=== PATIENT | female | born 1940 | race Caucasian/White ===

== ENCOUNTER 2019-10-11 21:03 | Inpatient (IN) | payer MEDICARE ==
[~2019-10-11] VITALS: Ht 162.6 cm; Wt 62.1 kg
[2019-10-11 21:05] VITALS: BP 145/56
[2019-10-11 21:37] LABS: ABSOLUTE BASOPHILS 0.1 thou/uL (0.0-0.2); ABSOLUTE EOSINOPHILS 0.4 thou/uL (0.0-0.7); ABSOLUTE LYMPHOCYTES 2.4 thou/uL (0.8-5.3); ABSOLUTE MONOCYTES 0.6 thou/uL (0.0-1.2); BASOPHILS 1.2 %; EOSINOPHILS 4.2 %; HEMATOCRIT 37.4 % (37.0-47.0); LYMPHOCYTES 28.4 %; MCH 31.9 pg (26.0-34.0); MCHC 34.6 g/dL (28.0-37.0); MCV 92.2 fL (80.0-100.0); MONOCYTES 6.8 %; MPV 8.7 fl. (7.2-11.1); NUCLEATED RBCS 0 /100WBC; PLATELET COUNT* 235 thou/uL (150-400); POLYS 59.4 %; RBC 4.06 mil/uL (4.20-5.00); RDW-CV 15.1 % (10.5-14.5); WBC 8.4 thou/uL (4.0-11.0)
[2019-10-11 21:46] LABS: APTT 25.6 Seconds (25.0-31.3); CALCIUM 8.2 mg/dL (8.5-10.1); INR 1.2; POTASSIUM 3.7 mmol/L (3.5-5.1); PROTIME 12.1 Seconds (9.20-11.50)
[2019-10-11] MEDS ORDERED: ATIVAN0.5 M1 PO (21:47)
[2019-10-11] MEDS ORDERED: ARICEPT10 M1 PO (21:47)
[2019-10-11] MEDS ORDERED: ASA81BEC PO (21:47)
[2019-10-11] MEDS ORDERED: CENTRUM SILVER1 EAC6 PO (21:48)
[2019-10-11] MEDS ORDERED: LASIX 40 MG TAB40 MG PO (21:48)
[2019-10-11] MEDS ORDERED: FISH OIL 1,0001 EAC9 PO (21:48)
[2019-10-11] MEDS ORDERED: KLOR-CON 1010 MEQ PO (21:48)
[2019-10-11] MEDS ORDERED: NEURONTIN100 MG PO (21:48)
[2019-10-11] MEDS ORDERED: LIPITOR 20 MG T20 M1 PO (21:49)
[2019-10-11] MEDS ORDERED: DEPAKOTE250 MG PO (21:49)
[2019-10-11] MEDS ORDERED: METOPROLOL TART25 MG PO (21:49)
[2019-10-11] MEDS ORDERED: NAMENDA 10 MG T10 MG PO (21:49)
[2019-10-11] MEDS ORDERED: FLORANEX TABLE1 EACH PO (21:50)
[2019-10-11] MEDS ORDERED: LEVO-T100 MCG PO (21:50)
[2019-10-11] MEDS ORDERED: CYMBALTA20 MG PO (21:50)
[2019-10-11] MEDS ORDERED: AZO BLADDER CO300 MG PO (21:50)
[2019-10-11 21:51] LABS: ALBUMIN 3.5 g/dL (3.4-5.0); TOTAL BILIRUBIN 0.4 mg/dL (<0.1-1.0); TOTAL PROTEIN 6.9 g/dL (6.4-8.2)
[2019-10-11 22:35] LABS: URINE BILIRUBIN NEGATIVE (Negative); URINE BLOOD NEGATIVE (Negative); URINE CLARITY CLEAR; URINE COLOR YELLOW; URINE GLUCOSE-RANDOM NEGATIVE (Negative); URINE KETONES NEGATIVE (Negative); URINE LEUKOCYTES-REFLEX NEGATIVE (Negative); URINE NITRITE-REFLEX POSITIVE (Negative); URINE PROTEIN NEGATIVE (Negative); URINE UROBILINOGEN 0.2 E.U./dl (0.2-1.0)
[2019-10-11 22:50] LABS: BACTERIA-REFLEX >30 Many /HPF (None Seen); COARSE GRANULAR CASTS 0-3 Few /LPF (None Seen); CRYSTALS None Seen /LPF (None Seen); FINE GRANULAR CASTS 0-3 Few /LPF (None Seen); MUCUS 4-6 Moderate strn/LPF (None Seen); RENAL EPITHELIAL CELLS 0-3 Few /LPF (None Seen); SQUAMOUS 4-10 Moderate /LPF (0-3); TRANSITIONAL EPITHEL CELL 0-3 Few /LPF (None Seen); URINE RBC 3-10 Few /HPF (0-2); WBC CLUMPS Few (None Seen)
[2019-10-11 23:27] VITALS: BP 153/76
[2019-10-11 23:30] VITALS: BP 151/82
[2019-10-12 08:45] VITALS: BP 109/52
--- NOTE | 2019-10-12 11:16 | EKG ---
[place] [address] ELECTROCARDIOGRAM REPORT Name: LOUIE MAKI Room: [address] IN M.R.#: [id number] Admission: 10/11/19 Attend Phys: Khadar Peter, Discharge: Date of : 36 Date of Service: 10/11/192116 Report #: [id number] THIS REPORT FOR: //name// [facility] ED Test Date: 2019-10-11 Test Time: 21:17:28 Pat Name: LOUIE MAKI Department: Room: [facility] Gender: F Greeter Guest Services: RADHA : 1940 Requested By: Brigido Montenegro Order Number: [id number] MD: Tano Kramer Measurements Intervals [place] Rate: 61 P: FL: 118 QRS: -25 QRSD: 97 T: -38 QT: 414 QTc: 417 Interpretive Statements Atrial-paced complexes with first-degree AV block No previous ECG available for comparison Electronically Signed On 10-12-2019 11:16:09 CDT by Tano Kramer [email or web address] <ELECTRONICALLY SIGNED> By: Tano Kramer MD, [facility] 10/12/19 1116 16 16 Tano Kramer MD, [facility] /EPI
[2019-10-12 17:37] VITALS: BP 122/49
--- NOTE | 2019-10-12 18:12 | NUR ---
Pt returned from surgery approx 1630. Pt confused, ao to self. Pt is stable, VSS. IVF running and pt tolerating well. Pt has adductor wedge in place and hip precautions maintained. Pt has no c/o pain at this time. Incision to right hip is CDI and mepilex is in place. Ice pack in place as well. Hourly rounding complete. Will continue to monitor
[2019-10-13] VITALS: BP 116/49
[2019-10-13 04:00] VITALS: BP 118/51
--- NOTE | 2019-10-13 04:54 | NUR ---
PATIENT HAS REMAINED ALERT AND ORIENTED X 1. RESTING QUIETLY AT HOURLY ROUNDS. NO PAIN INDICATORS WITH Q2H TURNS. MEDS PER ORDER. ABLE TO TAKE MEDS WHOLE WITH APPLESAUCE AND DRINKING FROM STRAW WITH ASSIST. MEDS AND IVF'S PER ORDER. DRESSING RIGHT HIP CLEAN AND DRY. ABDUCTION WEDGE IN PLACE. HIP PRECAUTIONS MAINTAINED. VITAL SIGNS STABLE. CONTINUE TO MONITOR.
[2019-10-13 06:04] LABS: HEMATOCRIT 30.7 % (37.0-47.0); MCH 32.2 pg (26.0-34.0); MCHC 34.7 g/dL (28.0-37.0); MCV 92.8 fL (80.0-100.0); MPV 8.6 fl. (7.2-11.1); RBC 3.31 mil/uL (4.20-5.00); RDW-CV 15.2 % (10.5-14.5); WBC 9.6 thou/uL (4.0-11.0)
[2019-10-13 06:10] LABS: HEMOGLOBIN 10.7 gm/dL (12.0-15.0)
[2019-10-13 06:13] LABS: CALCIUM 7.7 mg/dL (8.5-10.1); CREATININE 0.9 mg/dL (0.6-1.3); POTASSIUM 3.8 mmol/L (3.5-5.1)
[2019-10-13 07:30] VITALS: BP 98/40
[2019-10-13 11:39] VITALS: BP 127/48
--- NOTE | 2019-10-13 13:10 | NUR ---
Nutrition: Pt admitted with Rt hip FX. Seen for pressure ulcer risk, on coccyx. Wt: 136#. BG WNL, albumin 3.5. REgular diet ordered. H/o dementia, EDWIN, HLD. No nutrition interventions needed at this time. GOALS: >75% of meals consumed. Consider mild to low nutrition risk. Will follow up per protocol.
[2019-10-13 16:00] VITALS: BP 135/54
--- NOTE | 2019-10-13 16:07 | NUR ---
PT REMAINED ALERT TO SELF. PT WORKED WITH THERAPY AND UP TO CHAIR FOR MEALS. HIP PRECAUTIONS MAINTAINED. MEDS GIVEN ORDERED. MILLAN REMOVED. FALL RISK PRECAUTIONS IN PLACE. HOURLY ROUNDING COMPLETED. WILL CONTINUE TO MONITOR.
[2019-10-13 19:45] VITALS: BP 125/49
[2019-10-14] VITALS: BP 124/51
[2019-10-14 04:00] VITALS: BP 95/50
--- NOTE | 2019-10-14 04:56 | NUR ---
PATIENT REMAINS ALERT AND ORIENTED TO SELF. CAN CONVERSE IN SHORT PHRASES BUT MOSTLY REPEATING WHAT HAS BEEN SAID TO HER. TURNED Q2H. MEDICATED X1 FOR PAIN AND TEMP 100.4. TO GOOD EFFECT. VITAL SIGNS STABLE. POOR APPETITE REPORTED. CONSUMED A PUDDING FOR HS SNACK WITH HER PILLS AND FINISHED ENSURE FROM SUPPER WELL 300 ML WATER. INC URINE. DRESSING RIGHT HIP CLEAN AND DRY. ICE PACK UTILIZED. ABDUCTION WEDGE PLACED FOR SLEEP. HIP PRECAUTIONS MAINTAINED. FALL PRECAUTIONS IN PLACE. CONTINUE TO MONITOR.
[2019-10-14 06:22] LABS: HEMATOCRIT 29.9 % (37.0-47.0); HEMOGLOBIN 10.2 gm/dL (12.0-15.0); MCH 31.7 pg (26.0-34.0); MCV 93.2 fL (80.0-100.0); MPV 9.2 fl. (7.2-11.1); RBC 3.21 mil/uL (4.20-5.00); RDW-CV 14.7 % (10.5-14.5); WBC 12.4 thou/uL (4.0-11.0)
--- NOTE | 2019-10-14 06:44 | OP ---
[address] [address] OPERATIVE REPORT Name: LOUIE MAKI Room: [address] IN [facility]#: [id number] Admission: 10/11/19 Attend Phys: Khadar Peter MD Discharge: Date of : 36 Report #: [id number] THIS REPORT FOR: //name// cc: Nikolas Hinton MD, James MD ~ THIS REPORT FOR: //name// CC: Khadar Hinton DICTATED BY: Maxim Baeza DO DATE OF SERVICE: 10/12/2019 PREOPERATIVE DIAGNOSIS: Right displaced, transcervical femoral neck fracture. POSTOPERATIVE DIAGNOSIS: Right displaced, transcervical femoral neck fracture. PROCEDURE PERFORMED: Right sailaja-hip arthroplasty with the Biomet system with the following components: A size 13 standard offset echo press-fit stem, a size 51 mm outer shell and a size 28 mm modular head component with standard neck. SURGEON: Ayush David DO CASH ACCOUNTANT: Maxim Baeza DO CASH ACCOUNTANT: Hernandez Quezada DO ANESTHESIA: Spinal anesthetic with local injected at the surgical field. ANTIBIOTICS: 2 grams of Ancef given IV 30 minutes prior to incision. ESTIMATED BLOOD LOSS: 200 mL. DRAINS: None. SPECIMENS: None. COMPLICATIONS: None. CONDITION: The patient is stable to PACU. DISPOSITION: PACU to medical surgical floor. INDICATIONS: The patient is a pleasant 79-year-old female who fell out of her wheelchair at her assisted and landed on her right lower extremity. She had [address] [place] [address] OPERATIVE REPORT Name: LOUIE MAKI Room: [address] IN M.R.#: [id number] Admission: 10/11/19 Attend Phys: Khadar Peter MD Discharge: Date of : 38 Report #: [id number] immediate onset of pain and inability to bear weight on the right lower extremity, subsequently taken to [facility] for further evaluation and determined to have a right displaced femoral neck fracture. She was subsequently admitted and recommended undergo a right sailaja-hip arthroplasty. Therefore, the risks, benefits, treatment options, alternatives, and indications were discussed with the patient. Risks include but not limited to damage to surrounding neurovascular structures, continued pain, continued bleeding, need for repeat surgery, wound dehiscence, infection, DVT, PE, as well as inherent complications of anesthesia. The patient assumed the risks and wished to proceed with surgery. The patient and her DPOA assumed the risks and wished to proceed with surgery. DESCRIPTION OF PROCEDURE: The patient was seen in the preoperative holding area where consent was obtained. Right lower extremity was marked and initialed. The patient was then transferred back to the operative suite and placed supine on the operating room table. She was given the benefit of spinal anesthetic, then placed in the left lateral decubitus position. All bony prominences were well padded as well as a well placed axillary roll. The right lower extremity was then sterilely prepped utilizing Hibiclens scrub followed by alcohol rinse and ChloraPrep x 2 and then draped free in normal sterile fashion. A timeout then had indicating appropriate patient, procedure to be performed, operative site, operative surgeon, preoperative antibiotics and all in attendance were in agreeance and all relevant imaging was displayed. Next, the procedure began with a curvilinear incision centered over the anterior aspect of the femur approximately 10 cm. Skin was incised through the skin and subcutaneous tissues with a knife to the level of the IT band. Next, the IT band was then nicked with a second clean knife just inferior to the greater trochanter on the anterior one-third aspect and then the leg was then elevated and finger sweep was used to free also sub-tensor adhesions. Next, the tensor fascia incision was then elongated proximally and distally with curved Ann scissors. This allowed exposure of the gluteus medius tendons attached on the greater trochanter. The leg was then slowly externally rotated and then the gluteus medius and minimus tendons were peeled off the greater trochanter to the level of the capsule with care to only incise approximately the inferior 50% of the tendon, leaving the remaining 50% of the greater trochanter. Next, the superior and inferior aspect of the neck were then identified with the gluteus minimus retracted and the capsule was then identified. Capsule was then incised in a T capsulotomy elevating the superior and inferior flaps as well as removing the capsule of the saddle region as well as the inferior neck to the level of the lesser trochanter. At which point, it was visualized, there was significant fracture intracapsular hematoma as well as a fracture of the transcervical region of the femoral neck with hematoma, fibrinous material. The femoral neck cut was then freshened up representing approximately 1 fingerbreadth above the femoral neck cut with a reciprocating saw with care not to undercut the greater trochanter. Next, the leg was brought up to a lateral position externally rotated and the femoral head was then removed utilizing a bone [place] [address] OPERATIVE REPORT Name: LOUIE MAKI Room: [address]#: [id number] Admission: 10/11/19 Attend Phys: Khadar Peter MD Discharge: Date of : 36 Report #: [id number] pulvinar was then removed as well as any remaining periosteum or capsular bone fragments. Next, femoral head was then trialed and determined to be a size 51 femoral head that allowed adequate stability with good suction. Next, the trial was then removed. The leg was maximally externally rotated and then the box osteotome was used to excise the remnant of the femoral neck and then canal finder was used to localize within the canal. Next, a subsequent reaming was then began starting at 4 and reamed up to a size 13. Next broaching was then began starting at size 7 and then increasing to size 13. Third size 13 allowed good fit and fill with adequate rotation and was determined to be stable. Next, a trial head and neck liner was then performed until it was decided to have a standard neck with a standard head. Next, trial components were then subsequently removed. The femoral canal was then thoroughly irrigated with normal saline and then the final stem was then impacted into appropriate position, depth and anteversion. Next, the tourniquet was then cleansed and dried with normal saline and a clean, dry lap and the final head and neck combination were then impacted on to with a head ____. They were then tested with 2-finger tug test and determined to be stable. Next, the hip was then reduced, taken through range of motion and determined to be stable in all planes with appropriate tension to the knee as well as appropriate leg lengths. Next, the wound was then thoroughly irrigated and the capsule was then closed with #1 Vicryl in dvqqal-yf-axxtf interrupted fashion. Next, the gluteus medius tendon was then reapproximated utilizing #5 FiberWire with a greater trochanter bone tunnels in cljlok-el-qysnk fashion. Then, it was oversewed with #1 Vicryl in a running fashion with locking stitches. Next tibia was then closed utilizing #1 Vicryl in vzciyt-zz-ynzjg interrupted fashion and then the deep fat layer was then closed utilizing 2-0 Vicryl in a ddrrwn-me-lfkwe interrupted fashion followed by skin closure of 2-0 Vicryl in inverted interrupted subcuticular stitches followed by running 3-0 Stratafix subcuticular stitch with skin glue. Sterile dressings of Mepilex and MARY hose were then applied. Abduction pillow was then applied. Anesthesia was then reversed and the patient was transferred back to her hospital bed. Sponge and needle counts were correct x [address] David was present for all critical aspects of the case. <ELECTRONICALLY SIGNED> By: Carlos Caba DO 10/14/19 0644 1556 1654Davipreston David DO /nt
[2019-10-14 07:00] VITALS: BP 118/49
[2019-10-14 12:00] VITALS: BP 107/46
[2019-10-14 16:00] VITALS: BP 117/90
--- NOTE | 2019-10-14 16:41 | NUR ---
PT REMAINED ALERT TO SELF. PT UP TO CHAIR FOR MEALS. PT FEBRILE DURING SHIFT, MEDS GIVEN ORDERED. FALL RISK PRECAUTIONS IN PLACE. HOURLY ROUNDING COMPLETED. WILL CONTINUE TO MONITOR.
--- NOTE | 2019-10-14 16:44 | NUR ---
CM INITIATED ASSESSMENT TO DISCUSS PT. PT WAS ALERT, AND HAS HX OF DEMENTIA AND IS A POOR HISTORIAN PER CHART AND DIL. PT LIVES AT [facility] [place]. [facility] AWAITING AUTH FOR SNF. LOLA SALAZARK W/PAPA TO CONFIRM PT OKAY TO [place], REGARDLESS OF SNF STATUS. NANCY CONFIRMED OK FOR PT TO [facility]TRN. PER PT DIL, PT'S AND SPOUSE'S PHONE IS DISCONNECTED D/T FAILURE TO PAY. CM TO CONT TO FOLLOW.
--- NOTE | 2019-10-14 18:00 | NUR ---
ATTEMPTED TO STRAIGHT CATH TO OBTAIN UA AFTER TRYING OTHER MEASURES. UNABLE TO OBTAIN UA AND PT BECAME AGITATED. WILL ATTEMPT TO GET UA AGAIN.
[2019-10-14 20:00] VITALS: BP 132/51
[2019-10-15 00:35] VITALS: BP 130/48
--- NOTE | 2019-10-15 03:48 | NUR ---
PATIENT SLEPT WELL DURING THIS SHIFT. PT ABLE TO TAKE PILLS CRUSHED IN PUDDING WITH NO PROBLEMS. PT TURNED Q2H PER PROTOCAL. PT DENIES PAIN. ABDUCTOR WEDGE IN PLACE. PT WEARING MARY HOSE AND FOOT PUMPS. PT IS ON ROOM AIR. FREQUENTLY USD ITEMS AND CALL LIGHT WITHIN REACH. SIDERAILS UPX3 AND BED ALARM ON. WILL CONTINUE TO MONITOR.
[2019-10-15 08:00] VITALS: BP 109/45
--- NOTE | 2019-10-15 15:59 | NUR ---
INSUR AUTH IS STILL PENDING...CM SENT UPDATED NOTES PER DARON'S REQUEST.
[2019-10-15 16:00] VITALS: BP 132/42
--- NOTE | 2019-10-15 18:45 | NUR ---
PATIENT RESTING UP IN CHAIR, EATING DINNER. PATIENT IS CONFUSED AND UNCOOPERATIVE AT TIMES. PATIENT DENIES ANY PAIN. PATIENT HAS EXCELLENT APPETITE WITH ASSISTANCE WITH MEALS. PATIENT WORKED WITH THERAPY THIS MORNING. BED/CHAIR ALARMS IN USE. WILL CONTINUE TO MONITOR.
[2019-10-15 19:38] VITALS: BP 126/48
--- NOTE | 2019-10-16 06:50 | NUR ---
PT ORIENTED TO SELF, ON ROOM AIR, VSS, PT TURNED Q2HR, HIP PRECAUTIONS MAINTAINED. HOURLY ROUNDINGS COMPLETE. WILL CONTINUE TO MONITOR.
[2019-10-16 07:50] VITALS: BP 110/50
[2019-10-16 10:10] LABS: ABSOLUTE BASOPHILS 0.1 thou/uL (0.0-0.2); ABSOLUTE EOSINOPHILS 0.7 thou/uL (0.0-0.7); ABSOLUTE LYMPHOCYTES 1.8 thou/uL (0.8-5.3); ABSOLUTE MONOCYTES 0.8 thou/uL (0.0-1.2); HEMATOCRIT 25.4 % (37.0-47.0); HEMOGLOBIN 8.9 gm/dL (12.0-15.0); LYMPHOCYTES 17.2 %; MCH 32.5 pg (26.0-34.0); MCHC 34.9 g/dL (28.0-37.0); MONOCYTES 7.7 %; MPV 9.8 fl. (7.2-11.1); NUCLEATED RBCS 0 /100WBC; PLATELET COUNT* 160 thou/uL (150-400); POLYS 67.1 %; RBC 2.73 mil/uL (4.20-5.00); WBC 10.3 thou/uL (4.0-11.0)
[2019-10-16 10:19] LABS: ALBUMIN 2.1 g/dL (3.4-5.0); CREATININE 0.9 mg/dL (0.6-1.3); POTASSIUM 3.7 mmol/L (3.5-5.1); TOTAL BILIRUBIN 0.6 mg/dL (<0.1-1.0); TOTAL PROTEIN 5.9 g/dL (6.4-8.2)
[2019-10-16] MEDS ORDERED: NORCO 5-325 TA1 EAC2 PO (10:25)
[2019-10-16] MEDS ORDERED: ELIQUIS2.5 MG PO (10:26)
[2019-10-16 11:04] LABS: PLATELET ESTIMATE ADEQUATE
[2019-10-16 11:34] VITALS: BP 110/50
--- NOTE | 2019-10-16 14:05 | NUR ---
PATIENT DISCHARGED TO [facility]. REPORT CALLED TO FRITZ. PATIENT BELONGINGS PACKED AND ASSISTED WITH GETTING DRESSED. PATIENT IV REMOVED. PATIENT DENIES ANY NEEDS. COPY OF CHART AND DISCHARGE SENT WITH TRANSPORTER. PATIENT ASSISTED TO WHEELCHAIR. LEFT BY WHEELCHAIR VAN AT THIS TIME.
--- NOTE | 2019-10-16 14:21 | NUR ---
CM RECIEVED A CALL FROM [facility] ADMISSIONS AND THEY INFORM THAT INSURANCE AUTH HAS BEEN RECEIVED AND ARE ABLE TO ACCEPT THE PT TODAY. [facility] ARRANGED TRANSPOR TFOR THE PT FOR [id number]. CM ATEMPTED TO CONTACT THE PT'S SON TO INFORM OF THIS INFO, BUT THE LISTED NUMBER DOES NOT IDENTIFY HIM ON THE VOICEMAIL. NO MESSAGE LEFT. LOLA INFORMED NURSING OF ALL OF TH EABOVE INFO AND SHE IS IN AGREEMENT. CM WILL REMAIN AVAILABLE TO ASSIST AND FOLLOW NEEDED.
== END 2019-10-16 14:05 | DRG 470 ==
LOC: M.ERS 21:03 → M.ORTHSURG 21:49 → M.TBA-ER 21:49 → M.ORTHSURG 23:46
PROVIDERS: Family Medicine; Internal Medicine; Orthopaedic Surgery; ADMIT Internal Medicine; ATTEND Internal Medicine
PROC: 0SRR0JA Replacement of Right Hip Joint, Femoral Surface with Synthetic Substitute, Uncemented, Open Approach (ICD-10-PCS; principal; 2019-10-12)
DX: M80.051A Age-related osteoporosis with current pathological fracture, right femur, initial encounter for fracture (principal); N39.0 Urinary tract infection, site not specified; I50.32 Chronic diastolic (congestive) heart failure; F03.90 Unspecified dementia, unspecified severity, without behavioral disturbance, psychotic disturbance, mood disturbance, and anxiety; I48.91 Unspecified atrial fibrillation; G47.33 Obstructive sleep apnea (adult) (pediatric); E03.9 Hypothyroidism, unspecified; E78.5 Hyperlipidemia, unspecified; F41.9 Anxiety disorder, unspecified; F32.9 Major depressive disorder, single episode, unspecified; F39 Unspecified mood [affective] disorder; Z90.13 Acquired absence of bilateral breasts and nipples; Z95.0 Presence of cardiac pacemaker; Z85.3 Personal history of malignant neoplasm of breast; Z88.0 Allergy status to penicillin; Z91.040 Latex allergy status; Z03.818 Encounter for observation for suspected exposure to other biological agents ruled out

== ENCOUNTER 2020-04-01 12:51 | Inpatient (IN) | payer MEDICARE ==
[~2020-04-01] VITALS: Ht 162.6 cm; Wt 62.7 kg
[~2020-04-01 12:51] MED LIST: ARICEPT10 M1 PO; ASA81BEC PO; ATIVAN0.5 M1 PO; AZO BLADDER CO300 MG PO; CENTRUM SILVER1 EAC6 PO; CYMBALTA20 MG PO; DEPAKOTE250 MG PO; ELIQUIS2.5 MG PO; FISH OIL 1,0001 EAC9 PO; FLORANEX TABLE1 EACH PO; KLOR-CON 1010 MEQ PO; LASIX 40 MG TAB40 MG PO; LEVO-T100 MCG PO; LIPITOR 20 MG T20 M1 PO; METOPROLOL TART25 MG PO; NAMENDA 10 MG T10 MG PO; NEURONTIN100 MG PO; NORCO 5-325 TA1 EAC2 PO
[2020-04-01 12:54] VITALS: BP 119/68
[2020-04-01] MEDS ORDERED: ARICEPT10 M1 PO (12:57)
[2020-04-01] MEDS ORDERED: TYLENOL325 M1 PO (12:57)
[2020-04-01] MEDS ORDERED: ATIVAN0.5 M1 PO (12:58)
[2020-04-01] MEDS ORDERED: AZO CRANBERRY250 MG PO (12:58)
[2020-04-01] MEDS ORDERED: DRIZALMA SPRINK20 MG PO (12:59)
[2020-04-01] MEDS ORDERED: LOPERAMIDE 2 MG2 M1 PO (13:00)
[2020-04-01] MEDS ORDERED: MIRALAX119 GM PO (13:01)
[2020-04-01] MEDS ORDERED: VITAMIN D325 MC3 PO (13:01)
[2020-04-01 13:27] LABS: ABSOLUTE BASOPHILS 0.1 thou/uL (0.0-0.2); ABSOLUTE LYMPHOCYTES 1.9 thou/uL (0.8-5.3); ABSOLUTE MONOCYTES 0.8 thou/uL (0.0-1.2); ABSOLUTE NEUTROPHILS 5.6 thou/uL (1.6-8.1); BASOPHILS 0.7 %; HEMATOCRIT 38.8 % (37.0-47.0); HEMOGLOBIN 12.4 gm/dL (12.0-15.0); LYMPHOCYTES 22.6 %; MCHC 31.9 g/dL (28.0-37.0); MONOCYTES 9.1 %; MPV 8.6 fl. (7.2-11.1); NUCLEATED RBCS 0 /100WBC; PLATELET COUNT* 260 thou/uL (150-400); POLYS 67.6 %; RBC 4.13 mil/uL (4.20-5.00); RDW-CV 16.4 % (10.5-14.5); WBC 8.2 thou/uL (4.0-11.0)
[2020-04-01 13:31] LABS: CALCIUM 8.4 mg/dL (8.5-10.1); CREATININE 1.7 mg/dL (0.6-1.3); POTASSIUM 3.8 mmol/L (3.5-5.1)
[2020-04-01 13:41] LABS: APTT 24.1 Seconds (25.0-31.3); INR 1.2; PROTIME 12.7 Seconds (9.20-11.50)
[2020-04-01 13:42] LABS: ALBUMIN 2.8 g/dL (3.4-5.0); TOTAL BILIRUBIN 0.4 mg/dL (<0.1-1.0); TOTAL PROTEIN 7.6 g/dL (6.4-8.2)
[2020-04-01 13:44] LABS: BE 2.6 mmol/L (-2 to +3); PCO2 42.7 mmHg (35.0-45.0); PO2 82.7 mmHg (75.0-100.0); pH 7.424 (7.340-7.450)
--- NOTE | 2020-04-01 14:35 | EKG ---
[place] [address] ELECTROCARDIOGRAM REPORT Name: LOUIE MAKI Room: [place] [address] ADM IN [facility].#: [id number] Admission: 04/01/20 Attend Phys: Vania Melendez MD Discharge: Date of : 36 Date of Service: 04/01/20 1301 Report #: [id number] THIS REPORT FOR: //name// [facility] ED Test Date: 2020-04-01 Test Time: 13:01:15 Pat Name: LOUIE MAKI Department: Room: [facility] Gender: F Automatic Lehr Operator: : 1940 Requested By: Brigido Montenegro Order Number: [id number] MD: Tano Kramer Measurements Intervals [place] Rate: 63 P: 64 DC: 148 QRS: 54 QRSD: 88 T: 7 QT: 409 QTc: 419 Interpretive Statements Sinus rhythm Baseline wander in lead(s) V1 Nondiagnostic inferior Q waves Compared to ECG 10/11/2019 21:17:2 Minor interventricular conduction delay persists Atrial-paced complex(es) or rhythm no longer present Electronically Signed On 04-01-2020 14:35:24 ISOBUTYLENE OPERATOR CHIEF by Tano Kramer [email or web address] <ELECTRONICALLY SIGNED> By: Tano Kramer MD, [facility] 04/01/20 1435 1301 1301 Tano Kramer MD, [facility] /EPI
[2020-04-01 18:23] VITALS: BP 117/53
--- NOTE | 2020-04-01 19:20 | NUR ---
PT RESTING QUIETLY IN BED WITH O2 15L HI JERZY NC, SAT 95%. PT NON VERBAL, WILL SQUEEZE MY HAND AND GRIMACES SHOWING TEETH. LAC IVF PLACED ON PUMP FOR INFUSION. BSR UP, CALL LITE IN EASY REACH, BED ALRM ON FOR SAFETY. DOES NOT APPEAR TO BE IN PAIN OR DISTRESS. TELE MONITOR TO BE PLACED ON PT. REMAINS ON COVID ISOLATION. WILL CONTINUE TO MONITOR AND PROVIDE CARES ORDERED.
[2020-04-01 19:45] VITALS: BP 153/61
--- NOTE | 2020-04-01 21:30 | NUR ---
SPOKE WITH SON JUWAN AND GAVE HIM AN UPDATE ON PT CONDITION AND PLAN OF CARE. HE HAD NO QUESTIONS AT THIS TIME AND WILL CALL BACK TOMORROW.
[2020-04-02 00:40] VITALS: BP 119/61
[2020-04-02 00:49] LABS: CALCIUM 8.6 mg/dL (8.5-10.1); CREATININE 1.4 mg/dL (0.6-1.3); POTASSIUM 3.2 mmol/L (3.5-5.1)
[2020-04-02 04:20] VITALS: BP 134/72
--- NOTE | 2020-04-02 05:29 | NUR ---
PT SLEPT FAIRLY WELL OVERNIGHT, AWAKENS EASILY WITH CARES. MAKING FACIAL GRIMACES WITH CONVERSATION, OCC REPEATING WORDS BACK THAT STAFF SAYS. HS ACCUCHECK 197, INSULIN GIVEN ORDERED. LAC IVF INFUSING PER PUMP, LABS DRAWN ORDERED. NPO, BEDREST, TURNED AND REPOSITIONED Q2 HOURS AND PRN FOR SKIN CARE AND COMFORT. INCONT URINE SEVERAL TIMES OVERNIGHT, MICHAEL CARE GIVEN AND BARRIER CREAM APPLIED. ORAL SWABS FOR MOUTH, LIP MOISTURIZER APPLIED. TELE SR, PACED. SOME CONGESTED COUGH HEARD THIS MORNING. O2 15L HFNC SAT 95%. R LIMB ALERT HX MASTECTOMY. AM LABS. NEPHROLOGY CONSULT BY DR LAMAR. BED ALRM ON FOR SAFETY. NO APPARENT PAIN-RESTING QUIETLY WITH EYES CLOSED.
[2020-04-02 05:35] LABS: HEMATOCRIT 38.7 % (37.0-47.0); HEMOGLOBIN 12.7 gm/dL (12.0-15.0); MCH 30.7 pg (26.0-34.0); MCHC 32.8 g/dL (28.0-37.0); MCV 93.8 fL (80.0-100.0); RBC 4.13 mil/uL (4.20-5.00); RDW-CV 16.3 % (10.5-14.5); WBC 9.9 thou/uL (4.0-11.0)
[2020-04-02 05:48] LABS: CALCIUM 8.7 mg/dL (8.5-10.1); CREATININE 1.3 mg/dL (0.6-1.3); POTASSIUM 3.3 mmol/L (3.5-5.1)
[2020-04-02 09:00] VITALS: BP 164/99
[2020-04-02 13:59] VITALS: BP 149/64
--- NOTE | 2020-04-02 14:55 | NUR ---
CM CONTACTED PT'S SON JUWAN TO DISCUSS CM ASSESSMENT. JUWAN INFORMS THAT THE PT RESIDES AT [facility] ON THE MEMORY [facility]ARE UNIT. JUWAN INFORMS THAT THE PT HAS 'DEMENTIA AND CANT REMEMBER A LOT'. PT USES A WHEELCHAIR FOR MOBILITY AND NEEDS ASSISTANCE WITH FEEDING AT TIMES. PT CURRENTLY ON 15L HIGH FLOW 02. CM WILL NEED TO CONFIRM IF ANY OXYGEN WAS USED BY PT PRIOR TO ADMIT. CM ATTEMPTED TO CONTACT ISM'S TO DISUCUSS ABILITY TO ACCEPT TO PT AT D/C. NO ANSWER CM WILL F/U WITH ISM'S TO DISCUSS THIS. CM WILL REMAIN AVAILABLE TO ASSIST AND FOLLOW NEEDED. [facility] PHONE: [phone]
--- NOTE | 2020-04-02 16:47 | NUR ---
PT REMAINED ALERT. PT VERBAL AT TIMES BUT DIFFICULT TO UNDERSTAND. Q2 TURNS COMPLETED. ACCU CHECKS COMPLETED. FAMILY UPDATED. FALL RISK PRECAUTIONS IN PLACE. HOURLY ROUNDING COMPLETED. ISOLATION MAINTAINED.
[2020-04-02 18:01] LABS: CALCIUM 8.4 mg/dL (8.5-10.1); CREATININE 1.3 mg/dL (0.6-1.3); POTASSIUM 3.5 mmol/L (3.5-5.1)
[2020-04-02 18:39] LABS: URINE BILIRUBIN NEGATIVE (Negative); URINE BLOOD TRACE (Negative); URINE COLOR YELLOW; URINE GLUCOSE-RANDOM NEGATIVE (Negative); URINE KETONES NEGATIVE (Negative); URINE LEUKOCYTES 3+ (Negative); URINE NITRITE POSITIVE (Negative); URINE PROTEIN 1+ (Negative); URINE SPECIFIC GRAVITY 1.015 (1.005-1.030); URINE UROBILINOGEN 0.2 E.U./dl (0.2-1.0)
[2020-04-02 18:41] LABS: URINE CLARITY SL HAZY
[2020-04-02 18:49] LABS: BACTERIA 1-9 Few /HPF (None Seen); CRYSTALS None Seen /LPF (None Seen); HYALINE CASTS 4-10 Moderate /LPF (None Seen); MUCUS None Seen strn/LPF (None Seen); SQUAMOUS 4-10 Moderate /LPF (0-3); URINE RBC 0-2 Rare /HPF (0-2); URINE WBC >25 Many /HPF (0-5)
[2020-04-02 19:47] VITALS: BP 148/57
[2020-04-03] VITALS: BP 140/68
[2020-04-03 04:00] VITALS: BP 137/45
--- NOTE | 2020-04-03 04:52 | NUR ---
PT ORIENTED TO SELF. ON 15L BY [place]. MEDS GIVEN ORDERED. PT INCONTINENT OF BLADDER. TURNS, HOURLY ROUNDINGS DONE. PT SAID SHE IS HUNGRY, SNACKS GIVEN. WILL CONTINUE TO MONITOR.
[2020-04-03 08:15] VITALS: BP 125/55
[2020-04-03 08:51] LABS: HEMOGLOBIN 12.3 gm/dL (12.0-15.0); MCH 30.5 pg (26.0-34.0); MCHC 32.3 g/dL (28.0-37.0); MCV 94.4 fL (80.0-100.0); MPV 9.1 fl. (7.2-11.1); RBC 4.03 mil/uL (4.20-5.00); RDW-CV 16.5 % (10.5-14.5); WBC 17.1 thou/uL (4.0-11.0)
[2020-04-03 09:01] LABS: CALCIUM 8.5 mg/dL (8.5-10.1); CREATININE 1.4 mg/dL (0.6-1.3); POTASSIUM 3.6 mmol/L (3.5-5.1)
--- NOTE | 2020-04-03 09:52 | CON ---
[address] [address] CONSULTATION Name: LOUIE MAKI Room: [address] IN M.R.#: [id number] Admission: 04/01/20 Attend Phys: Vania Melendez MD Discharge: Date of : 36 Report #: [id number] THIS REPORT FOR: cc: Nikolas Hinton MD, James MD Alessandra Lane MD NEPHROLOGY CONSULT CONSULTING PHYSICIAN: Dr. Melendez. REASON FOR CONSULTATION: Hypernatremia. HISTORY OF PRESENT ILLNESS: This is an 79-year-old female with a history of dementia, brought in from nursing facility for shortness of air. She tested positive for COVID-19 and is under treatment for that by primary service. Her sodium was as high as 164 and creatinine was 1.7 on admission. She was started on hydration. Her chemistries are improving. She is not able to provide any meaningful history at the present time. REVIEW OF SYSTEMS: Constitutional, psych, heme, eyes, ENT, respiratory, cardiac, GI, , endocrine, all negative except as documented above and as best as can be ascertained from chart review. FAMILY HISTORY: Not pertinent to current clinical case. SOCIAL HISTORY: Resides at [facility]. CURRENT MEDICATIONS: Reviewed. PHYSICAL EXAMINATION: VITAL SIGNS: Blood pressure is 134/72, pulse 77, respirations 20, temperature 36.7. GENERAL: No acute distress. EYES: Open. EARS: Externally normal. CARDIOVASCULAR: Regular rate. LUNGS: Diminished. ABDOMEN: Soft. MUSCULOSKELETAL: Nontender. PSYCHIATRIC: Does not answer questions or follow commands. LABORATORY STUDIES: White cell count 9.9, hemoglobin 12.7, platelets 242. Sodium 159, potassium 3.3, chloride 118, bicarbonate 30, BUN 34, creatinine 1.3, glucose 193, calcium 8.7. [place] [address] CONSULTATION Name: LOUIE MAKI Room: [address] IN [facility]#: [id number] Admission: 04/01/20 Attend Phys: Vania Melendez MD Discharge: Date of : 36 Report #: [id number] ASSESSMENT: 1. Acute kidney injury with admission creatinine of 1.7 in the setting of volume depletion. Creatinine is improving. 2. COVID-19 pneumonia. 3. Hypernatremia. 4. Plan renal function is improving. Admission creatinine was 1.7, is now down to 1.3. On 10/15, her creatinine was 0.9. 5. Hypernatremia with a sodium of 164on admission. On 10/15, it was 138 secondary to dehydration. PLAN: 1. Continue D5W at 100 mL an hour. 2. Hypokalemia. Potassium was replaced. 3. Check labs again in the a.m. We will also check a UA. No indication for ultrasound at this time. His creatinine is improving. We will follow along with you. Thank you for requesting my opinion in the care and management of this patient. <ELECTRONICALLY SIGNED> By: Alessandra Lane MD 04/03/[address] MD /nt
--- NOTE | 2020-04-03 12:32 | NUR ---
THIS NURSE AGREES WITH ASSESSMENT THIS SHIFT.
[2020-04-03 14:58] VITALS: BP 136/69
--- NOTE | 2020-04-03 14:59 | NUR ---
PHONE CALL TO PATIENT'S SON JUWAN. INDORMED ON PT STATUS. PT REMAINS ON HIGH FLOW OXYGEN. MAKING WYE CONTACT WITH STAFF. TURN Q 2 HOURS. PT SMILES AT TIMES. UNKNOWN DISCHARGE DATE. INFORMED TO CALL TOMORROW AFTER ROUNDS TO SPEAK WITH SUPERVISOR ROAD ADMINISTRATOR. INFORMED TO TAKE ILLNESS DAY BY DAY. PT IS DOING WELL NOW. CALL LIGHT IN REACH. WILL CONTINUE TO MONITOR. THANKED FOR THE CALL.
[2020-04-03 16:30] VITALS: BP 116/60
--- NOTE | 2020-04-03 18:05 | NUR ---
PT ALERT IN BED. VSS, FALL RISK PRECAUTIONS IN PLACE. Q2 TURNS DOCUMENTED. PT REMAINS ON 15 L HIGH FLOW O2. PT NEEDS ASSISTANCE WITH EATING. SPOKE WITH FAMILY. WILL CONTINUE TO MONITOR.
[2020-04-03 20:30] VITALS: BP 107/43
[2020-04-04 01:20] VITALS: BP 123/48
[2020-04-04 03:31] VITALS: BP 115/49
[2020-04-04 04:31] LABS: HEMATOCRIT 32.2 % (37.0-47.0); HEMOGLOBIN 10.7 gm/dL (12.0-15.0); MCH 30.6 pg (26.0-34.0); MCHC 33.2 g/dL (28.0-37.0); MCV 92.3 fL (80.0-100.0); RBC 3.49 mil/uL (4.20-5.00); RDW-CV 16.2 % (10.5-14.5); WBC 8.1 thou/uL (4.0-11.0)
[2020-04-04 04:45] LABS: CALCIUM 7.5 mg/dL (8.5-10.1); CREATININE 1.3 mg/dL (0.6-1.3); POTASSIUM 3.7 mmol/L (3.5-5.1)
--- NOTE | 2020-04-04 07:19 | NUR ---
Patient is confused. Vitals are stable. She's on a high flow nasal canula at 15L. She's turned every 2 hours,redness on buttocks. She was incontinent of urine, purewick was placed. This am critical Na+ called to nephro and orders recieved and also hosptalist notified. She's febrile and tylenol was given. She has slept well.
--- NOTE | 2020-04-04 09:38 | NUR ---
PT ON 15L NRB AND HIFLO OXYGEN. OBTAIN STAT CXRY, PLACE MILLAN, CONSULT WITH DR. CARLTON AT [facility].
[2020-04-04 12:31] LABS: CALCIUM 8.2 mg/dL (8.5-10.1); CREATININE 1.2 mg/dL (0.6-1.3)
[2020-04-04 12:33] LABS: POTASSIUM 2.7 mmol/L (3.5-5.1)
[2020-04-04 12:52] VITALS: BP 121/48
--- NOTE | 2020-04-04 16:00 | NUR ---
PT.REMAINS ON O2 15L/NRB MASK. ID CONSULTED FOR POSITIVE BLD CX. RULED A CONTAMINATE. FEBRILE. IS ON IVAB. WILL CONTINUE TO FOLLOW.
[2020-04-04 17:30] VITALS: BP 95/42
[2020-04-04 20:00] VITALS: BP 110/57
[2020-04-05 00:06] VITALS: BP 143/61
[2020-04-05 04:00] VITALS: BP 138/56
--- NOTE | 2020-04-05 04:39 | NUR ---
PT A&O X 1, CONFUSED. 15L OF OXYGEN. LOW GRADE TEMP, CONGESTED COUGH. POTASSIUM REPLACED PER PROTOCOL. MILLAN IN PLACE. TURNS, HOURLY ROUNDINGS DONE. WILL CONTINUE TO MONITOR.
[2020-04-05 05:14] LABS: CALCIUM 7.9 mg/dL (8.5-10.1); CREATININE 1.1 mg/dL (0.6-1.3)
[2020-04-05 15:00] VITALS: BP 113/60
[2020-04-05 16:34] VITALS: BP 126/60
--- NOTE | 2020-04-05 16:36 | NUR ---
UPDATED NIKKIE/SAMUEL REGARDING PT. SHE REMAINS ON 15L 02 ON [facility]. O2 REQIURMENTS WILL NEED TO BE UNDER 5L BEFORE THEY CAN ACCEPT HER BACK. PER NIKKIE, PT.DID NOT WEAR O2 AT IS. SHE ALSO LOVES DIET COKE. CM WILL FOLLOW
[2020-04-05 21:00] VITALS: BP 129/72
[2020-04-06] VITALS: BP 129/60
[2020-04-06 04:00] VITALS: BP 118/101
[2020-04-06 09:00] VITALS: BP 117/83
[2020-04-06 09:10] LABS: CALCIUM 9.3 mg/dL (8.5-10.1); CREATININE 1.1 mg/dL (0.6-1.3); POTASSIUM 3.8 mmol/L (3.5-5.1)
[2020-04-06 16:00] VITALS: BP 139/62
--- NOTE | 2020-04-06 16:00 | NUR ---
FEBRILE YESTERDAY AND TODAY. NOT EATING/DRINKING. WILL START NG TUBE FEEDINGS. ON 02 PER VENTIMASK. IV ANTIBIOTICS. DISCUSSED WITH FAMILY.
[2020-04-06 21:12] VITALS: BP 105/52
[2020-04-07] VITALS: BP 118/57
[2020-04-07 04:00] VITALS: BP 118/55
--- NOTE | 2020-04-07 07:59 | NUR ---
PATIENT SLEPT PART OF THE NIGHT. NG TUBE REMAINS IN PLACE. TUBE FEEDING WAS GIVEN Q6 WITH WATER FLUSHES. PATIENT WAS PLACED BACK ON NRB AT 15L DUE TO SATS IN THE 80S ON THE VENTIMASK. WILL CONTINUE TO MONITOR.
[2020-04-07 08:00] VITALS: BP 139/55
[2020-04-07 09:01] LABS: CREATININE 1.1 mg/dL (0.6-1.3); POTASSIUM 3.7 mmol/L (3.5-5.1)
[2020-04-07 12:00] VITALS: BP 110/50
--- NOTE | 2020-04-07 17:00 | NUR ---
PT.VERY [place] AND NON VERBAL AT THIS TIME. SHE IS ON HIGH O2 REQUIREMENTS AND NPO PER ST RECOMMENDATIONS. IF FAMILY AGREEABLE TO HOSPICE SHE COULD RETURN TO HER LTC BED ON THEIR [facility]ARE UNIT WITH HIGHER O2 REQUIREMENTS.
[2020-04-07 17:15] VITALS: BP 145/77
--- NOTE | 2020-04-07 19:22 | NUR ---
RECEIVED REPORT AROUND 07. ASSUMED CARE. IV'S INTACT. HEART MONITOR ATTACHED AT [facility]. VS AND ASESSMENT CHARTED. HOURLY ROUNDING PERFORMED. MEDS GIVEN PER MAY. DR CROWE PULLED NG TUBE OUT AND PUT PT ON 5L NC. PT LYING IN BED. PHYSICAL THERAPY WORKED WITH PT THIS SHIFT. MAX ASSIST TO CHAIR. MILLAN INTACT. SPEECH SAW PT. MADE PT NPO STATUS DUE TO UNABLE TO FOLLOW COMMANDS. DR NOTIFIED. INSULIN AND DEXAMETHASONE D/C'D PER DR CROWE. CALL LIGHT WTIN REACH. WILL CONTINUE TO MONITOR.
[2020-04-07 21:00] VITALS: BP 117/69
[2020-04-08 00:27] VITALS: BP 149/67
[2020-04-08 04:51] VITALS: BP 130/58; BP 159/69
--- NOTE | 2020-04-08 05:02 | NUR ---
PT LYING IN BED AT TIME OF ASSESSMENT, SHE IS AO X1 WITH LITTLE CONVERSATION. PT IS A-PACED ON TELE. PT IS NPO PER SPEECH EVAL YESTERDAY. PT HAS MILLAN CATH WITH HISTROY OF INCONTINENCE. PT HAS MIDLINE TO LUE
[2020-04-08 08:00] VITALS: BP 117/66
[2020-04-08 10:15] LABS: CREATININE 0.8 mg/dL (0.6-1.3)
[2020-04-08 12:19] VITALS: BP 163/80
--- NOTE | 2020-04-08 16:00 | NUR ---
PT.REMAINS ON HI O2 REQUIREMENTS. REMAINS NPO PER SPEECH. DISCUSSED WITH . HE SAID NO DISCHARGE TODAY. [facility]-[phone]
[2020-04-08 16:54] VITALS: BP 123/74
--- NOTE | 2020-04-08 19:18 | NUR ---
RECEIVED REPORT AROUND 0715. ASSUMED CARE. VS AND ASSESSMENT CHARTED. IV INTACT LEFT UPPER ARM. MILLAN INTACT. HEART MONITOR ATTACHED AT APACED. PT LYING IN BED. PHYSICAL THERAPY WORKED WITH PT THIS SHIFT. GOT UP TO CHAIR FOR A WHILE. PT NONVERBAL. UNABLE TO VOICE WHETHER IN PAIN OR NOT. NO APPARENT PAIN. NPO STATUS INTACT. WATER AND ICE CHIPS ACCEPTABLE PER SPEECH. SON UPDATED ON PT THIS SHIFT. MEDS GIVEN PER MAY. HOURLY ROUNDING PERFORMED. Q2 TURNS. CALL LIGHT WITHIN REACH.
[2020-04-09 00:54] VITALS: BP 147/59
[2020-04-09 04:00] VITALS: BP 104/55
--- NOTE | 2020-04-09 06:35 | NUR ---
ASSUMED PT'S CARE @ ABOUT 1999. PT WAS AWAKE. NONEVERBAL. ATTEMPTS TO SPEAK BUT UNABLE TO VOICE ANY WORDS. PT NPO. NO PO MEDS GIVEN. Q2 TURN, FALL PRECAUTION IN PLACE. PT SLEPT WELL THIS SHIFT. CALL LIGHT WITHIN REACH. WILL CONTINUE TO MONITOR.
[2020-04-09 09:30] VITALS: BP 118/56
--- NOTE | 2020-04-09 09:45 | NUR ---
NOTICED PT SLOUCHED OVER IN BED. NOTED SHALLOW BREATHING. O2 SAT 87-89% ON 10L HFNC. INCREASED O2 TO 12L THEN 15L WITH O2 SAT AT 90%. RT CALLED. PT PLACED ON BIPAP WITH A RATE OF 16.
--- NOTE | 2020-04-09 11:55 | NUR ---
SPOKE WITH PATIENT'S SON JWUAN. UPDATE GIVEN. INFORMED PT WAS BACK ON THE BIPAP FOR COMFORT, EASE OF BREATHING, AND O2 LEVELS LOW PER HFNC. PT STILL NOT EATING. INFORMED NO PLAN TO D/C AT THIS TIME. PER SON PT IS A DNR AND TIBURCIO ROSENTHAL HAS THE INFORMATION FOR RESUSCITATION STATUS. DOES NOT WANT TO TALK WITH TELEVISION EQUIPMENT OPERATOR AT THIS TIME. PER REPORT PT LIKES [employer] [facility]/[facility] WHEN SHE CAN EAT. APPRECIATES UPDATE. WILL PASS ALONG TO INTERIOR DESIGN COORDINATOR TO UPDATE SON BEFORE 2200.
[2020-04-09 12:28] LABS: CREATININE 0.8 mg/dL (0.6-1.3)
[2020-04-09 16:00] VITALS: BP 176/92
--- NOTE | 2020-04-09 18:45 | NUR ---
PT SLEEPING IN BED COMFORTABLY AT THIS TIME. PT REMAINS ON BIPAP. RATE IS 21. LEFT MIDLINE RUNNING ABX. RESPS EVEN AND UNLABORED. NO DISTRESS NOTED. PT SLEEPING WELL. WILL CONTINUE TO MONITOR. CALL LIGHT WITHIN REACH.
[2020-04-10 00:55] VITALS: BP 162/88
[2020-04-10 04:48] VITALS: BP 163/63
--- NOTE | 2020-04-10 06:44 | NUR ---
NO ACUTE CHANGES THROUGHOUT SHIFT. PT RESTED MOST OF THE NIGHT AND WAS ON BIPAP FOR ENTIRE SHIFT.
--- NOTE | 2020-04-10 18:18 | NUR ---
PT SLEEPING IN BED AT THIS TIME. ABX RUNNING THROUGH MIDLINE ON LEFT UPPER ARM. PT AWAKENS TO VOICE. PT REMAINS NPO DUE TO BIPAP. CALL LIGHT WITHIN REACH. WILL CONTINUE TO MONITOR.
[2020-04-11 01:13] VITALS: BP 158/79
[2020-04-11 05:46] VITALS: BP 131/45
[2020-04-11 07:40] VITALS: BP 133/37
--- NOTE | 2020-04-11 12:08 | NUR ---
RECEIVED CALL FROM PATIENT'S SON JUWAN. UPDATE GIVEN. STATES HE WAS RETURNING MD CALL. WILL PASS ON THE MESSAGE. DR. CROWE PAGED VIA PAGE ME TO CALL HIM BACK.
--- NOTE | 2020-04-11 14:09 | NUR ---
PT.HAS DISCHARGE ORDERS TO RETURN TO [facility] WITH HOSPICE. DISCUSSED WITH SON,JUWAN. CM HAD TO LEAVE FOR JUWAN. ASKED HIM TO CALL ME BACK TO DISCUSS HOSPICE AND WHICH AGENCY HE MIGHT WANT TO USE.
--- NOTE | 2020-04-11 17:00 | NUR ---
SON,JUWAN, CALLED BACK ABOUT 1500. DISCUSSED HOSPICE AND AGENCIES. HE CHOSE [facility] [place]. EXPLAINED SOMEONE FROM [facility] WOULD BE CONTACTING HIM TO SIGN ON WITH HOSPICE PROBABLY THROUGH EMAIL/FAX. TOLD HIM HOSPICE WOULD ORDER ALL EQUIPMENT NEEDED AND ONCE IN PLACE HIS MOM WOULD BE TAKEN BY AMBULANCE OVER TO [facility]. PROBABLY EARLY EVENING. HE WAS AGREEABLE. FAXED REFERRAL TO [facility] [place] AND ORDERS TO [facility] . SPOKE WITH [facility]/ADMISSIONS. CHART COPIED TO GO WITH PT. TRINO CLARK TO CALL REPORT. [facility] ASKED THAT AMBULANCE TRANSPORT BE SET UP FOR 1800 TO MAKE SURE EQUIPMENT ARRIVED. PHYSICAL MEDICINE PHYSICIAN WOULD MEET PT.OVER AT [facility] TO GET HER ADMITTED.
--- NOTE | 2020-04-11 17:39 | NUR ---
PT REMAINS UNRESPONSIVE. REPORT CALLED TO MAXIMILIANO AT [facility] AT 1727. MILLAN REMOVED WITH CATHETER INTACT. LEFT UPPER MIDLINE ALSO TAKEN OUT WITH CATHETER INTACT. PACKET SENT WITH PT. PT NOW ON 10-12L PER NASAL CANNULA. PT DOES NOT FOLLOW COMMANDS AT THIS TIME. PT FAILED SWALLOW STUDY TODAY. PT UNABLE TO TOLERATE ICE CHIPS. REPORT CALLED AND [facility] WILL BE HERE TO UNIT ASSEMBLER PATIENT AT 1800.
== END 2020-04-11 18:18 | disposition hospice, home (50) | DRG 177 ==
LOC: M.ERS 12:51 → M.ORTHSURG 14:11 → M.TBA-ER 14:11 → M.ORTHSURG 19:29
PROVIDERS: Family Medicine; Internal Medicine; Internal Medicine Nephrology; ADMIT Family Medicine; ATTEND Family Medicine
DX: U07.1 COVID-19 (principal); J96.01 Acute respiratory failure with hypoxia; N17.0 Acute kidney failure with tubular necrosis; J12.82 Pneumonia due to coronavirus disease 2019; G93.41 Metabolic encephalopathy; I50.32 Chronic diastolic (congestive) heart failure; N17.9 Acute kidney failure, unspecified; E87.0 Hyperosmolality and hypernatremia; N39.0 Urinary tract infection, site not specified; R78.81 Bacteremia; G47.33 Obstructive sleep apnea (adult) (pediatric); D64.9 Anemia, unspecified; E03.9 Hypothyroidism, unspecified; F03.90 Unspecified dementia, unspecified severity, without behavioral disturbance, psychotic disturbance, mood disturbance, and anxiety; F41.9 Anxiety disorder, unspecified; F32.9 Major depressive disorder, single episode, unspecified; E86.0 Dehydration; E78.5 Hyperlipidemia, unspecified; I48.0 Paroxysmal atrial fibrillation; E87.6 Hypokalemia; R73.9 Hyperglycemia, unspecified; F39 Unspecified mood [affective] disorder; Z66 Do not resuscitate; Z90.11 Acquired absence of right breast and nipple; Z95.0 Presence of cardiac pacemaker; Z85.3 Personal history of malignant neoplasm of breast; Z79.899 Other long term (current) drug therapy; Z79.82 Long term (current) use of aspirin; Z88.0 Allergy status to penicillin; Z91.040 Latex allergy status